=== PATIENT | male | born 1985 | race Hispanic/Latino ===

== ENCOUNTER 2018-06-03 16:18 | Emergency (ER) | payer BC, OTHER ==
[2018-06-03 17:13] LABS: CREATININE 1.2 mg/dL (0.5-1.5); POTASSIUM 3.4 mmol/L (3.5-5.1)
== END 2018-06-03 17:50 | disposition home or self-care (01) ==
LOC: EDH 16:18
DX: F41.1 Generalized anxiety disorder (principal); R06.02 Shortness of breath; M54.2 Cervicalgia
CPT/HCPCS: 36415; 80048; 82550; 84484; 85378; 93005

== ENCOUNTER 2019-03-20 14:54 | Emergency (ER) | payer BC, OTHER ==
[2019-03-20] MEDS ORDERED: ZOSYN 3.375GM+NS 50ML 50 ML IV ONE (15:47)
[2019-03-20] MEDS ORDERED: SODIUM CHLORIDE 0.9% 1000ML 1,000 ML IV ONE (15:48)
[2019-03-20] MEDS ORDERED: MORPHINE SULFATE 4 MG/1ML SYG ONE (15:48)
[2019-03-20 15:58] LABS: BASOPHILS % (AUTO) 0.4 % (0.0-5.0); EOSINOPHILS % (AUTO) 1.9 % (0.0-8.0); HEMATOCRIT 42.2 % (42-54); MEAN CORPUSCULAR HEMOGLOBIN 29.8 pg (27.0-33.0); MEAN CORPUSCULAR HGB CONC 34.5 g/dL (32.0-36.0); MEAN CORPUSCULAR VOLUME 86.2 fL (79-99); MONOCYTES % (AUTO) 7.5 % (3.0-13.0); NEUTROPHILS % (AUTO) 81.2 % (40.0-77.0); NUCLEATED RED BLOOD CELLS 0.1 % (0.0-0.19); PLATELET COUNT (AUTO) 202 K/uL (130-400); RED BLOOD CELL COUNT(AUTO) 4.89 MIL/uL (4.50-6.20); RED CELL DISTRIBUTION WIDTH 12.7 % (11.0-15.5); WHITE BLOOD COUNT (AUTO) 14.6 K/uL (4.8-10.8)
[2019-03-20 16:14] LABS: POTASSIUM 3.5 mmol/L (3.5-5.1)
[2019-03-20 16:18] LABS: ALBUMIN 3.6 g/dL (3.5-5.0); BILIRUBIN,TOTAL 0.8 mg/dL (0.2-1.0); TOTAL PROTEIN, SERUM 7.4 g/dL (6.0-8.3)
[2019-03-20 16:18] LABS: APPEARANCE,URINE Clear (CLEAR); BILIRUBIN,URINE Negative (NEGATIVE); COLOR,URINE Yellow (YELLOW); GLUCOSE, URINE (UA) Negative (NEGATIVE); KETONES,URINE 15 mg/dL (NEGATIVE); LEUKOCYTE ESTERASE ,URINE Negative (NEGATIVE); NITRATE,URINE Negative (NEGATIVE); OCCULT BLOOD,URINE Negative (NEGATIVE); PROTEIN,URINE Negative (NEGATIVE)
[2019-03-20] MEDS ORDERED: METRONIDAZOLE 500 MG TABLET ONE (17:02)
[2019-03-20] MEDS ORDERED: KETOROLAC TROMETHAMINE 30MG/ML ONE (17:03)
[2019-03-20] MEDS ORDERED: LEVOFLOXACIN 500 MG TABLET ONE (17:04)
== END 2019-03-20 18:22 | disposition home or self-care (01) ==
LOC: EDH 14:54
DX: K57.92 Diverticulitis of intestine, part unspecified, without perforation or abscess without bleeding (principal)
CPT/HCPCS: 36415; 74176; 80053; 81003; 83690; 85025; 96365; 96375; 99285; J1885; J2270; J2543; J7030